=== PATIENT | female | born 1995 | race Caucasian/White ===

== ENCOUNTER 2019-08-28 21:43 | Inpatient (IN) | payer OTHER ==
[2019-08-28] MEDS ORDERED: SODIUM CHLORIDE 1,000 ML IV STA (21:49)
--- NOTE | 2019-08-28 21:49 | PDOC ---
Rapid Medical Evaluation Time Seen by Provider: 08/28/19 21:47 Medical Evaluation: Allergies Allergy/AdvReac Type Severity Reaction Status Date / Time No Known Allergies Allergy Verified 12/22/14 20:29 08/28/19 21:47 CC: left sided abdominal pain PE: No focal findings. Orders: urine, labs Patient will proceed to ER for continued evaluation. Discharge Disposition - Diagnosis Abdominal pain - Referrals - Patient Instructions - Post Discharge Activity
--- NOTE | 2019-08-28 21:55 | PDOC ---
History of Present Illness - General Chief Complaint: Pain Stated Complaint: STOMACH PAIN Time Seen by Provider: 08/28/19 21:47 - History of Present Illness Initial Comments: 08/28/19 21:56 HPI 24 year old with a history of DM (noncompliant) who presents with 4 days of intermittent LLQ cramping abdominal pain that comes on intermittently sometimes preceded by eating and sometimes associated with nausea. She states the episodes last for 2 mins and self resolve. She admits to watery stools for the past several days as well. She denies fever or blood in the stool. Denies chest pain or shortness of breath. Denies any other symptoms. LNMP December 2018. Patient normally has regular menses. She is sexually active but does not use contraception or prophylaxis ROS GENERAL/CONSTITUTIONAL: No fever or chills. No weakness. CARDIOVASCULAR: No chest pain or shortness of breath RESPIRATORY: No cough, wheezing, or hemoptysis. GASTROINTESTINAL: No nausea, vomiting, + diarrhea No constipation. GENITOURINARY: No dysuria, frequency, or change in urination. MUSCULOSKELETAL: No joint or muscle swelling or pain. No neck or back pain. SKIN: No rash NEUROLOGIC: No headache, vertigo, loss of consciousness, or change in strength/ sensation. PE GENERAL: Awake, alert, and fully oriented, in no acute distress, very thin HEAD: No signs of trauma, normocephalic, atraumatic EYES: EOMI, sclera anicteric, conjunctiva clear ENT: oropharynx clear without exudates. Moist mucosa NECK: Normal ROM, supple LUNGS: No distress, speaks full sentences, clear to auscultation bilaterally HEART: Regular rate and rhythm, normal S1 and S2, no murmurs, rubs or gallops, peripheral pulses normal and equal bilaterally. ABDOMEN: Soft, nontender, normoactive bowel sounds. No guarding, no rebound. No masses EXTREMITIES : Normal inspection, Normal range of motion, no edema. No clubbing or cyanosis. NEUROLOGICAL: Cranial nerves II through XII grossly intact. Normal speech, normal gait, no focal sensorimotor deficits PELVIC: closed os, physiologic fluid, no CMT, no adnexal massess paplated MDM DDX including but not limited to: Crohns vs UC IBS r/o ectopic preg ED Course: fingerstick glucose is 501 labs sigfni for glucose at 600s 2 liters ns started patient does not exhibit signs of DKA on labwork no anion gap patient is an uncontrolled diabetic patient very thin appearing Will require close monitoring and started on diabetic regimen plan for admission Princess Zelaya PGY2 Emergency Medicine Past History - Past Medical History Allergies/Adverse Reactions: Allergies Allergy/AdvReac Type Severity Reaction Status Date / Time No Known Allergies Allergy Verified 12/22/14 20:29 Home Medications: Ambulatory Orders Insulin (Levemir) [Levemir Vial] 10 units SQ HS #300 units 08/30/19 Insulin Sliding Scale [Novolog Vial Sliding Scale -] 1 vial SQ ACHS #1 bottle Multivitamins [Multivit ([facility] Formulary)] 1 tab PO DAILY tab 08/30/19 Thiamine HCl [Vitamin B1 -] 100 mg PO DAILY tablet 08/30/19 Lancets/Blood Glucose Strips [Fora [id number] Strp-Lnct] 1 each MC ASDIR # 1 combo..pkg 08/31/19 Miscellaneous Medical Supply [Glucometer Device] 1 each .ROUTE ASDIR #1 kit 05/12 Miscellaneous Medical Supply [Glucometer Test Strips #100] 1 each .ROUTE ASDIR # 1 box 08/31/19 COPD: No Diabetes: Yes - Immunization History Immunization Up to Date: Yes - Psycho Social/Smoking Cessation Hx Smoking History: Never smoked Have you smoked in the past 12 months: No Information on smoking cessation initiated: No Hx Alcohol Use: No Drug/Substance Use Hx: No Substance Use Type: None *Physical Exam - Vital Signs Last Vital Signs Temp Pulse Resp BP Pulse Ox 98.5 F 136 H 18 113/75 100 08/28/19 21:49 08/28/19 21:49 08/28/19 21:49 08/28/19 21:49 08/28/19 21:49 ED Treatment Course - LABORATORY CBC & Chemistry Diagram: 08/31/19 07:33 08/31/19 07:33 Discharge - Discharge Information Problems reviewed: Yes Clinical Impression/Diagnosis: Abdominal pain Condition: Improved Disposition: HOME - Follow up/Referral - Patient Discharge Instructions - Post Discharge Activity
--- NOTE | 2019-08-28 22:07 | PDOC ---
Attending Attestation - Resident Resident Name: Princess Zelaya - ED Attending Attestation I have performed the following: I have examined & evaluated the patient, The case was reviewed & discussed with the resident, I agree w/resident's findings & plan - HPI HPI: 08/28/19 23:40 see resident hpi - Physicial Exam PE: 08/28/19 23:40 agree with resident exam - Medical Decision Making 08/28/19 23:40 24-year-old female, noncompliant type I diabetic due to insurance reasons with diarrhea abdominal cramping and extreme weight loss Labs consistent with diabetic hyperglycemia without secondary indications of diabetic ketoacidosis Sugar is significantly elevated Due to patient's appearance, glucose levels and lack of outpatient follow-up she will be admitted to medical service Insulin and IV hydration administered in the emergency department
[2019-08-28 22:25] LABS: BASO % 0.5 % (0-2.0); EOS % 0.2 % (0-4.5); HEMATOCRIT 39.9 % (32.4-45.2); LYMPH % 33.1 % (8-40); MCH 27.5 pg (25.7-33.7); MCHC 32.5 g/dl (32.0-36.0); MEAN CELL VOLUME 84.7 fl (80-96); MEAN PLT VOLUME 9.4 fl (7.5-11.1); MONO % 7.5 % (3.8-10.2); NEUT % 58.7 % (42.8-82.8); PLATELET COUNT 340 K/MM3 (134-434); RBC 4.71 M/mm3 (3.60-5.2); RDW 13.9 % (11.6-15.6)
[2019-08-28 22:28] LABS: VENOUS PC02 52.3 mmHg (38-52); VENOUS PH 7.37 (7.31-7.41)
[2019-08-28 22:29] LABS: VENOUS PO2 < 49 mmHg (28-48)
[2019-08-28 22:32] LABS: PH,URINE 6.5 (5.0-8.0); URINE APPEARANCE CLOUDY; URINE BILIRUBIN NEGATIVE (NEGATIVE); URINE COLOR YELLOW; URINE GLUCOSE (UA) 3+ (NEGATIVE); URINE KETONE TRACE (NEGATIVE); URINE LEUK ESTERASE 1+ (NEGATIVE); URINE NITRITE NEGATIVE (NEGATIVE); URINE PROTEIN NEGATIVE (NEGATIVE); URINE UROBILINOGEN 0.2 mg/dL (0.2-1.0)
[2019-08-28 23:01] LABS: INR 0.92 (0.83-1.09); PROTHROMBIN TIME (PATIENT) 10.9 SEC (9.7-13.0)
[2019-08-28] MEDS ORDERED: INSULIN REGULAR HUMAN 100 UNITS/ML *VIAL IVPUSH ONE (23:13)
[2019-08-28 23:15] LABS: URINE BACTERIA FEW /hpf (NEGATIVE)
[2019-08-28 23:34] LABS: ALBUMIN 3.5 g/dl (3.4-5.0); BILIRUBIN,TOTAL 0.3 mg/dL (0.2-1); BLOOD UREA NITROGEN 8.4 mg/dL (7-18); CALCIUM 8.9 mg/dL (8.5-10.1); CREATININE 0.8 mg/dL (0.55-1.3); MAGNESIUM 2.1 mg/dL (1.8-2.4); PHOSPHOROUS 3.4 mg/dL (2.5-4.9); POTASSIUM 3.9 mmol/L (3.5-5.1); TOT PROT 7.7 g/dl (6.4-8.2)
--- NOTE | 2019-08-29 00:11 | PN ---
Teaching Attending Note Name of Resident: Sabi Way ATTENDING PHYSICIAN STATEMENT I saw and evaluated the patient. I reviewed the resident's note and discussed the case with the resident. I agree with the resident's findings and plan as documented. SUBJECTIVE: 24-year-old woman with history of diabetes mellitus, Came to hospital seeking medical attention because she was having some abdominal pain which is now resolved. Patient has not been taking her insulin for the past few months due to loss of her insurance. She has regained insurance recently. She denied any eating disorders although she notes that she has decreased appetite lately. OBJECTIVE: Last Vital Signs Temp Pulse Resp BP Pulse Ox 98.5 F 136 H 18 113/75 100 08/28/19 21:49 08/28/19 21:49 08/28/19 21:49 08/28/19 21:49 08/28/19 21:49 GENERAL: Cachectic, wasted, not in acute distress HEENT: Normocephalic, atraumatic. PERRLA, EOMI. No conjunctival pallor. Sunken cheeks NECK: Supple. Full ROM. No JVD. Carotid pulses 2+ and symmetric, without bruits. No thyromegaly. No lymphadenopathy. CARDIOVASCULAR: Regular rate and rhythm. No murmurs, rubs, or gallops. Distal pulses are 2+ and symmetric. PULMONARY: No evidence of respiratory distress. Lungs clear to auscultation bilaterally. No wheezing, rales or rhonchi. ABDOMINAL: Soft. Non-tender. Non-distended. No rebound or guarding. No organomegaly. Normoactive bowel sounds. MUSCULOSKELETAL Normal range of motion at all joints. No bony deformities or tenderness. No CVA tenderness. EXTREMITIES: No cyanosis. No clubbing. No edema. No calf tenderness.Prominent bones SKIN: Warm and dry. Normal capillary refill. No rashes. No jaundice. PSYCHIATRIC: Cooperative. Good eye contact. Appropriate mood and affect. Abnormal Lab Results 08/28/19 08/28/19 08/28/19 22:17 22:17 22:17 POC VBG pCO2 POC VBG pO2 VBG HCO3 VBG O2 Sat (Justin) VBG Base Excess Sodium 128 L Chloride 88 L Random Glucose 605 H* AST 4 L ALT 11 L Alkaline Phosphatase 177 H Creatine Kinase 15 L Beta-Hydroxybutyrate < 0.2 L Ur Specific [place] Urine Glucose (UA) Urine Ketones Ur Leukocyte Esterase 08/28/19 08/28/19 22:17 22:20 POC VBG pCO2 52.3 H POC VBG pO2 < 49 H VBG HCO3 29.2 H VBG O2 Sat (Justin) 30.3 L VBG Base Excess 3.3 H Sodium Chloride Random Glucose AST ALT Alkaline Phosphatase Creatine Kinase Beta-Hydroxybutyrate Ur Specific [place] 1.043 H Urine Glucose (UA) 3+ H Urine Ketones Trace H Ur Leukocyte Esterase 1+ H Imaging reviewed ASSESSMENT AND PLAN: 24-year-old woman who with hyper glycemic hyperosmolar state, no evidence of an gap or ketones on blood work.Do not believe she is in DKA at this time. Elevated alk phosshould rule out cholecystitis given history of abdominal pain. Pseudohyponatremia secondary to hyperglycemia. Corrected sodium is 138. Negative urine test. MedSurg Abdominal ultrasound to rule out cholecystitis Chest x-ray IV fluid hydration Blood glucose checks every 4 hours A1c NovoLog tight sliding scale 10 units Levemir nightly Clear liquid diets, advance as tolerated Zofran IV as needed if nausea Recheck electrolytes including mag and phosphorus and supplement as needed community manager foster care worker intervention for medication approval #Cachexiamay be secondary to underlying insulin deficiency. Insulin is noted to be an anabolic hormone and lack of it will result in wasting. Patient otherwise denied any kind of eating disorder her sister agreed. SCDs for DVT prophylaxis
[2019-08-29] MEDS ORDERED: INSULIN SLIDING SCALE (NOVOLOG) 1 VIAL SQ SCH (01:15)
[2019-08-29] MEDS: SODIUM CHLORIDE 1,000 ML IV SCH ×2 (01:22→02:42)
--- NOTE | 2019-08-29 01:34 | HP ---
CHIEF COMPLAINT: LLQ pain PCP: none HISTORY OF PRESENT ILLNESS: Pt is a 24 y/o F w/ pmhx of Type 1 diabetes presenting to ED complaining LLQ abdominal pain onset few days ago but acutely worsened today. Pts pain is sharp , comes and goes, and radiates to RLQ at times. Pt rates pain as 8/10. Pt eats small meals because she experiences early satiety and nausea with larger meals. She also states her pain is worse with eating. Nothing alleviates the pain but it intermittently resolves on its own. She has not taken her insulin or followed up with an machinist instructor or PCP for the past year because of her insurance lapsing. She states prior to this she had taken her insulin regularly and followed up with Drs regularly. Pt also complaining of multiple episodes of watery brown, non-bloody diarrhea for the past few days. In the last few months the pt has noted that she has had polyuria, increased thirst and a 30lb weight loss (she reports her normal weight 130lb). The patient states she is concerned about her lack of appetite and recent weight loss. Pt denies ALVARES, fever, chills, chest pain, SOB, and numbness and tingling in lower extremeties. ER course was notable for: (1) 10u insulin (2) 1L NS bolus Recent Travel: denies PAST MEDICAL HISTORY: Type 1 diabetes (diagnosed 2014) PAST SURGICAL HISTORY: denies Social History: Smoking: denies Alcohol: denies Drugs: denies LNMP: December 2018 Occupation: Car Detailer Residence: pt lives with her sister Insurance: [email or web address] Allergies No Known Allergies Allergy (Verified 12/22/14 20:29) HOME MEDICATIONS: Home Medications Medication Instructions Recorded NK [No Known Home Medication] 12/22/14 REVIEW OF SYSTEMS CONSTITUTIONAL: weight change- 30lb wt loss in 2-3mo Absent: fever, chills, diaphoresis, generalized weakness, malaise, loss of appetite, HEENT: Absent: rhinorrhea, nasal congestion, throat pain, throat swelling, difficulty swallowing, mouth swelling, ear pain, eye pain, visual changes CARDIOVASCULAR: Absent: chest pain, syncope, palpitations, irregular heart rate, lightheadedness , peripheral edema RESPIRATORY: Absent: cough, shortness of breath, dyspnea with exertion, orthopnea, wheezing, stridor, hemoptysis GASTROINTESTINAL: LLQ/ RLQ abdominal pain, nausea, diarrhea, Absent: abdominal distension, vomiting, constipation, melena, hematochezia GENITOURINARY: increased frequency, Absent: dysuria, urgency, hesitancy, hematuria, flank pain, genital pain MUSCULOSKELETAL: back pain Absent: myalgia, arthralgia, joint swelling, neck pain SKIN: Absent: rash, itching, pallor HEMATOLOGIC/IMMUNOLOGIC: Absent: easy bleeding, easy bruising, lymphadenopathy, frequent infections ENDOCRINE: unexplained weight loss, increased thirst Absent: unexplained weight gain, heat intolerance, cold intolerance NEUROLOGIC: Absent: headache, focal weakness or paresthesias, dizziness, unsteady gait, seizure, mental status changes, bladder or bowel incontinence PSYCHIATRIC: Absent: anxiety, depression, suicidal or homicidal ideation, hallucinations. PHYSICAL EXAMINATION Vital Signs - 24 hr 08/28/19 21:49 Temperature 98.5 F Pulse Rate 136 H Respiratory 18 Rate Blood Pressure 113/75 O2 Sat by Pulse 100 Oximetry (%) GENERAL: Awake, alert, and fully oriented, in no acute distress. Extremely thin and frail appearing. HEAD: Normal with no signs of trauma. EYES: Pupils equal, round and reactive to light, extraocular movements intact, sclera anicteric, conjunctiva clear. No lid lag. EARS, NOSE, THROAT: Ears normal, nares patent, oropharynx clear without exudates. Dry mucous membranes, poor dentition with dental plaque and carries on multiple teeth especially molars NECK: Normal range of motion, supple without lymphadenopathy, JVD, or masses. LUNGS: Breath sounds equal, clear to auscultation bilaterally. No wheezes, and no crackles. No accessory muscle use. HEART: Regular rate and rhythm, normal S1 and S2 without murmur, rub or gallop. ABDOMEN: Soft, nontender, not distended, hypoactive bowel sounds, no guarding, no rebound, no masses. No hepatomegaly or splenomegaly. MUSCULOSKELETAL: Normal range of motion at all joints. No bony deformities or tenderness. No CVA tenderness. UPPER EXTREMITIES: 2+ pulses, warm, well-perfused. No cyanosis. No clubbing. No peripheral edema. LOWER EXTREMITIES: 2+ pulses, warm, well-perfused. No calf tenderness. No peripheral edema. NEUROLOGICAL: Cranial nerves II-XII intact. Normal speech. Normal gait. PSYCHIATRIC: Cooperative. Good eye contact. Appropriate mood and affect. SKIN: Warm, dry, normal turgor, no rashes or lesions noted, normal capillary refill. Laboratory Results - last 24 hr 08/28/19 08/28/19 08/28/19 22:17 22:17 22:17 WBC 6.0 RBC 4.71 Hgb 13.0 Hct 39.9 MCV 84.7 MCH 27.5 D MCHC 32.5 RDW 13.9 D Plt Count 340 D MPV 9.4 Absolute Neuts (auto) 3.6 Neutrophils % 58.7 Lymphocytes % 33.1 Monocytes % 7.5 Eosinophils % 0.2 Basophils % 0.5 Nucleated RBC % 0 PT with INR INR PTT (Actin FS) VBG pH POC VBG pCO2 POC VBG pO2 VBG HCO3 VBG O2 Sat (Justin) VBG Base Excess Sodium Potassium Chloride Carbon Dioxide Anion Gap BUN Creatinine Est GFR (CKD-EPI)AfAm Est GFR (CKD-EPI)NonAf POC Glucometer Random Glucose Calcium Phosphorus Magnesium Total Bilirubin AST ALT Alkaline Phosphatase Creatine Kinase 15 L Troponin I < 0.02 Total Protein Albumin Lipase Beta-Hydroxybutyrate < 0.2 L TSH Urine Color Urine Appearance Urine pH Ur Specific [place] Urine Protein Urine Glucose (UA) Urine Ketones Urine Blood Urine Nitrite Urine Bilirubin Urine Urobilinogen Ur Leukocyte Esterase Urine WBC (Auto) Urine Bacteria (Auto) Urine HCG, Qual Stool Occult Blood 08/28/19 08/28/19 08/28/19 22:17 22:17 22:17 WBC RBC Hgb Hct MCV MCH MCHC RDW Plt Count MPV Absolute Neuts (auto) Neutrophils % Lymphocytes % Monocytes % Eosinophils % Basophils % Nucleated RBC % PT with INR INR PTT (Actin FS) VBG pH 7.37 POC VBG pCO2 52.3 H POC VBG pO2 < 49 H VBG HCO3 29.2 H VBG O2 Sat (Justin) 30.3 L VBG Base Excess 3.3 H Sodium 128 L Potassium 3.9 Chloride 88 L Carbon Dioxide 31 Anion Gap 9 BUN 8.4 Creatinine 0.8 Est GFR (CKD-EPI)AfAm 121.29 Est GFR (CKD-EPI)NonAf 104.65 POC Glucometer Random Glucose 605 H* Calcium 8.9 Phosphorus 3.4 Magnesium 2.1 Total Bilirubin 0.3 AST 4 L ALT 11 L Alkaline Phosphatase 177 H Creatine Kinase Troponin I Total Protein 7.7 Albumin 3.5 Lipase 147 Cancelled Beta-Hydroxybutyrate TSH 2.68 Urine Color Urine Appearance Urine pH Ur Specific [place] Urine Protein Urine Glucose (UA) Urine Ketones Urine Blood Urine Nitrite Urine Bilirubin Urine Urobilinogen Ur Leukocyte Esterase Urine WBC (Auto) Urine Bacteria (Auto) Urine HCG, Qual Stool Occult Blood 08/28/19 08/28/19 08/28/19 22:20 22:20 22:20 WBC RBC Hgb Hct MCV MCH MCHC RDW Plt Count MPV Absolute Neuts (auto) Neutrophils % Lymphocytes % Monocytes % Eosinophils % Basophils % Nucleated RBC % PT with INR INR PTT (Actin FS) 33.0 VBG pH POC VBG pCO2 POC VBG pO2 VBG HCO3 VBG O2 Sat (Justin) VBG Base Excess Sodium Potassium Chloride Carbon Dioxide Anion Gap BUN Creatinine Est GFR (CKD-EPI)AfAm Est GFR (CKD-EPI)NonAf POC Glucometer Random Glucose Calcium Phosphorus Magnesium Total Bilirubin AST ALT Alkaline Phosphatase Creatine Kinase Troponin I Total Protein Albumin Lipase Beta-Hydroxybutyrate TSH Urine Color Yellow Urine Appearance Cloudy Urine pH 6.5 D Ur Specific [place] 1.043 H Urine Protein Negative Urine Glucose (UA) 3+ H Urine Ketones Trace H Urine Blood Negative Urine Nitrite Negative Urine Bilirubin Negative Urine Urobilinogen 0.2 Ur Leukocyte Esterase 1+ H Urine WBC (Auto) 3-5 Urine Bacteria (Auto) Few Urine HCG, Qual Negative Stool Occult Blood 08/28/19 08/28/19 08/28/19 22:20 22:30 23:09 WBC RBC Hgb Hct MCV MCH MCHC RDW Plt Count MPV Absolute Neuts (auto) Neutrophils % Lymphocytes % Monocytes % Eosinophils % Basophils % Nucleated RBC % PT with INR 10.90 INR 0.92 PTT (Actin FS) VBG pH POC VBG pCO2 POC VBG pO2 VBG HCO3 VBG O2 Sat (Justin) VBG Base Excess Sodium Potassium Chloride Carbon Dioxide Anion Gap BUN Creatinine Est GFR (CKD-EPI)AfAm Est GFR (CKD-EPI)NonAf POC Glucometer 501 Random Glucose Calcium Phosphorus Magnesium Total Bilirubin AST ALT Alkaline Phosphatase Creatine Kinase Troponin I Total Protein Albumin Lipase Beta-Hydroxybutyrate TSH Urine Color Urine Appearance Urine pH Ur Specific [place] Urine Protein Urine Glucose (UA) Urine Ketones Urine Blood Urine Nitrite Urine Bilirubin Urine Urobilinogen Ur Leukocyte Esterase Urine WBC (Auto) Urine Bacteria (Auto) Urine HCG, Qual Stool Occult Blood Negative 08/29/19 00:43 WBC RBC Hgb Hct MCV MCH MCHC RDW Plt Count MPV Absolute Neuts (auto) Neutrophils % Lymphocytes % Monocytes % Eosinophils % Basophils % Nucleated RBC % PT with INR INR PTT (Actin FS) VBG pH POC VBG pCO2 POC VBG pO2 VBG HCO3 VBG O2 Sat (Justin) VBG Base Excess Sodium Potassium Chloride Carbon Dioxide Anion Gap BUN Creatinine Est GFR (CKD-EPI)AfAm Est GFR (CKD-EPI)NonAf POC Glucometer 380 Random Glucose Calcium Phosphorus Magnesium Total Bilirubin AST ALT Alkaline Phosphatase Creatine Kinase Troponin I Total Protein Albumin Lipase Beta-Hydroxybutyrate TSH Urine Color Urine Appearance Urine pH Ur Specific [place] Urine Protein Urine Glucose (UA) Urine Ketones Urine Blood Urine Nitrite Urine Bilirubin Urine Urobilinogen Ur Leukocyte Esterase Urine WBC (Auto) Urine Bacteria (Auto) Urine HCG, Qual Stool Occult Blood ASSESSMENT/PLAN: Pt is a 24 y/o F w/ pmhx of Type 1 diabetes presenting to ED complaining LLQ abdominal pain onset few days ago but acutely worsened today. # Abdominal pain- patient found to be in hyperglycemic, hyperosmolar state which may be causin her polyuria, polydipsia, weight loss, and abdominal pain. She is a T1 diabetic, not taking any insulin for the past year 2/2 insurance lapse. Glucose 605 without any evidence of anion gap or ketones on blood work/ UA, given the lab findings it is unlikely that she is in DKA at this time. Must also r/o given her age and the fact that she is not on any contraception however this is not likely as the patient states she has not been sexually active in years and her lack of period may be explained by her BMI of 14. - CXR - IV NS@ 125cc/h - BGM q4h - ISS - 10u Levemir nightly - f/u A1C - clear liquid diet, advance as tolerated - IV zofran PRN for nausea - f/u CMP including mag/ phos, replete PRN - diabetic education - social work for medication approval - test is negative # Elevated Alk phos- pt complaining of many months of nonspecific abdominal pain that is worse with eating, given the elevated alk phos should r/o cholecystitis. - Abd u/s # Pseudo Hyponatremia- 2/2 hyperglycemia, corrected Na is 136 - IV NS@ 125cc/h # Cachexiamay be secondary to underlying insulin deficiency. Insulin is noted to be an anabolic hormone and lack of it will result in wasting. Patient otherwise denied any kind of eating disorder her sister agreed. #FEN - IV NS@ 125cc/h - monitor lytes, replete PRN - clear liquid diet, advance as tolerated #PPx SCDs for DVT prophylaxis #Dispo- admit to [facility] Visit type - Emergency Visit Emergency Visit: Yes ED Registration Date: 08/28/19 Care time: The patient presented to the Emergency Department on the above date and was hospitalized for further evaluation of their emergent condition. - New Patient This patient is new to me today: Yes Date on this admission: 08/29/19 - Critical Care Critical Care patient: No ATTENDING PHYSICIAN STATEMENT I saw and evaluated the patient. I reviewed the resident's note and discussed the case with the resident. I agree with the resident's findings and plan as documented. SUBJECTIVE: OBJECTIVE: ASSESSMENT AND PLAN:
[2019-08-29] MEDS: INSULIN SLIDING SCALE (NOVOLOG) 1 VIAL SQ SCH ×6 (02:54→22:31)
[2019-08-29 03:32] VITALS: BMI 15.0
[2019-08-29 07:39] LABS: BASO % 0.4 % (0-2.0); EOS % 0.8 % (0-4.5); HEMATOCRIT 31.4 % (32.4-45.2); HEMOGLOBIN 10.3 GM/dL (10.7-15.3); LYMPH % 41.6 % (8-40); MCH 27.3 pg (25.7-33.7); MCHC 32.9 g/dl (32.0-36.0); MEAN CELL VOLUME 82.9 fl (80-96); MEAN PLT VOLUME 9.2 fl (7.5-11.1); NEUT % 49.2 % (42.8-82.8); PLATELET COUNT 266 K/MM3 (134-434); RBC 3.79 M/mm3 (3.60-5.2); RDW 13.4 % (11.6-15.6); WHITE BLOOD COUNT 6.6 K/mm3 (4.0-10.0)
[2019-08-29 08:51] LABS: ALBUMIN 2.5 g/dl (3.4-5.0); BILIRUBIN,TOTAL 0.2 mg/dL (0.2-1); CREATININE 0.4 mg/dL (0.55-1.3); MAGNESIUM 1.9 mg/dL (1.8-2.4); PHOSPHOROUS 3.4 mg/dL (2.5-4.9); POTASSIUM 3.3 mmol/L (3.5-5.1); PREALBUMIN 14.2 mg/dl (20-40); TOT PROT 5.4 g/dl (6.4-8.2)
--- NOTE | 2019-08-29 09:05 | PN ---
Progress Note, Physician Chief Complaint: Very lethargic but arousable, stated she did not sleep much last night History of Present Illness: 24 y/o F w/ pmhx of Type 1 diabetes presenting to ED complaining LLQ abdominal pain onset x few days with worsening prior to ED. Pts pain is sharp, comes and goes, and radiates to RLQ at times. Pt rates pain as 8/10. Pt eats small meals because she experiences early satiety and nausea with larger meals. She also states her pain is worse with eating. Nothing alleviates the pain but it intermittently resolves on its own. No insulin for past year or f/u with endocrinology d/t insurance issues. Pt also complaining of multiple episodes of watery brown , non-bloody diarrhea for the past few days. In the last few months the pt has noted that she has had polyuria, increased thirst and a 30lb weight loss (she reports her normal weight 130lb). The patient states she is concerned about her lack of appetite and recent weight loss. Pt denies ALVARES, fever, chills, chest pain , SOB, and numbness and tingling in lower extremeties. - Current Medication List Current Medications: Active Medications Sodium Chloride (Normal Saline -) 1,000 mls @ 125 mls/hr IV [facility] Last Admin: 08/29/19 02:42 Dose: 125 mls/hr Insulin Aspart (Novolog Vial Sliding Scale -) 1 vial SQ [facility]; Protocol Last Admin: 08/29/19 06:20 Dose: Not Given - Objective Vital Signs: Vital Signs Temperature 98.7 F 08/29/19 06:06 Pulse Rate 90 08/29/19 06:06 Respiratory Rate 18 08/29/19 06:06 Blood Pressure 98/63 08/29/19 06:06 O2 Sat by Pulse Oximetry (%) 99 08/29/19 02:15 Constitutional: Yes: Well Nourished, No Distress, Calm Eyes: Yes: WNL, Conjunctiva Clear HENT: Yes: WNL, Atraumatic, Normocephalic, Other (poor dentation) Neck: Yes: WNL, Supple, Trachea Midline Cardiovascular: Yes: WNL, Regular Rate and Rhythm, Tachycardia (HR 90s) Respiratory: Yes: WNL, Regular, CTA Bilaterally Gastrointestinal: Yes: WNL, Normal Bowel Sounds ...Rectal Exam: Yes: Deferred Genitourinary: Yes: WNL Breast(s): Yes: WNL Musculoskeletal: Yes: WNL Extremities: Yes: WNL Edema: No Peripheral Pulses WNL: Yes Peripheral Pulses: Left Radial: 2+, Right Radial: 2+, Left Doralis Pedis: 2+, Right Dorsalis Pedis: 2+, Left Femoral: 2+, Right Femoral: 2+ Integumentary: Yes: WNL Neurological: Yes: WNL, Alert, Oriented ...Motor Strength: WNL Psychiatric: Yes: WNL, Alert, Oriented Labs: CBC, BMP 08/29/19 06:40 08/29/19 06:40 INR, PTT INR 0.92 (0.83-1.09) 08/28/19 22:20 - ....Imaging Chest X-ray: Report Reviewed, Image Reviewed (No acute pathology) Ultrasound: Report Reviewed (US contracted GB with no evidence of acute cholecyctitis, echogenic right kidney) Problem List - Problems (1) Prophylactic measure Assessment/Plan: FEN on clears, advance diet as tolerated monitor electrolytes c/w IVF until tolerating full PO DVT ambulatory Dispo maintain as in [facility] full code discharge planning Code(s): Z29.9 - ENCOUNTER FOR PROPHYLACTIC MEASURES, UNSPECIFIED (2) Abdominal pain Assessment/Plan: resolving advance diet as tolerated zofran/reglan prn c/w IVF Code(s): R10.9 - UNSPECIFIED ABDOMINAL PAIN (3) Hyperglycemia Assessment/Plan: hyperglycemic, hyperosmolar state BGM q4h with sliding scale 10u Levemir q HS A1C 15.6 clear liquid diet, advance as tolerated diabetic education endocrinology consultation requested Code(s): R73.9 - HYPERGLYCEMIA, UNSPECIFIED (4) Hypokalemia Assessment/Plan: replete potassium monitor electrolytes Code(s): E87.6 - HYPOKALEMIA Visit type - Emergency Visit Emergency Visit: Yes ED Registration Date: 08/28/19 Care time: The patient presented to the Emergency Department on the above date and was hospitalized for further evaluation of their emergent condition. - New Patient This patient is new to me today: Yes Date on this admission: 08/29/19 - Critical Care Critical Care patient: No - Discharge [facility] No
[2019-08-29] MEDS ORDERED: POTASSIUM CHLORIDE TABS 20 MEQ TABLET.ER (FP) PO ONE (09:12)
--- NOTE | 2019-08-29 09:19 | EKG ---
Test Reason : Blood Pressure : / mmHG Vent. Rate : 114 BPM Atrial Rate : 114 BPM P-R Int : 132 ms QRS Dur : 060 ms QT Int : 326 ms P-R-T Axes : 059 090 068 degrees QTc Int : 449 ms SINUS TACHYCARDIA RIGHTWARD AXIS BORDERLINE ECG NO PREVIOUS ECGS AVAILABLE Confirmed by MD Moy, Shaquille ([id number]) on 08/29/2019 9:19:41 AM Referred By: Confirmed By:Shaquille Winter MD
--- NOTE | 2019-08-29 11:26 | EKG ---
Test Reason : Blood Pressure : / mmHG Vent. Rate : 109 BPM Atrial Rate : 109 BPM P-R Int : 126 ms QRS Dur : 058 ms QT Int : 348 ms P-R-T Axes : 060 093 073 degrees QTc Int : 468 ms POOR DATA QUALITY, INTERPRETATION MAY BE ADVERSELY AFFECTED SINUS TACHYCARDIA POSSIBLE LEFT ATRIAL ENLARGEMENT RIGHTWARD AXIS NONSPECIFIC ST ABNORMALITY ABNORMAL ECG NO PREVIOUS ECGS AVAILABLE Confirmed by Britton Decker MD ([id number]) on 08/29/2019 11:26:13 AM Referred By: Confirmed By:Britton Decker MD
[2019-08-29] MEDS ORDERED: PT OWN MED DRAWER 7, Y5N ONE (18:33)
[2019-08-29] MEDS: INSULIN (LEVEMIR) 100 UNITS/ML UNITS SQ SCH (22:32)
[2019-08-30] MEDS: SODIUM CHLORIDE 1,000 ML IV SCH ×2 (01:31→13:48)
[2019-08-30] MEDS: INSULIN SLIDING SCALE (NOVOLOG) 1 VIAL SQ SCH ×6 (01:38→21:37)
--- NOTE | 2019-08-30 08:01 | PN ---
Progress Note, Physician Chief Complaint: Bloow sugars better controlled overnight. Tolerating PO diet now. Feels much better History of Present Illness: 24 y/o F w/ pmhx of Type 1 diabetes presenting to ED complaining LLQ abdominal pain onset x few days with worsening prior to ED. Pts pain is sharp, comes and goes, and radiates to RLQ at times. Pt rates pain as 8/10. Pt eats small meals because she experiences early satiety and nausea with larger meals. She also states her pain is worse with eating. Nothing alleviates the pain but it intermittently resolves on its own. No insulin for past year or f/u with endocrinology d/t insurance issues. Pt also complaining of multiple episodes of watery brown , non-bloody diarrhea for the past few days. In the last few months the pt has noted that she has had polyuria, increased thirst and a 30lb weight loss (she reports her normal weight 130lb). The patient states she is concerned about her lack of appetite and recent weight loss. Pt denies ALVARES, fever, chills, chest pain , SOB, and numbness and tingling in lower extremeties. - Current Medication List Current Medications: Active Medications Sodium Chloride (Normal Saline -) 1,000 mls @ 125 mls/hr IV [facility] Last Admin: 08/30/19 01:31 Dose: 125 mls/hr Insulin Aspart (Novolog Vial Sliding Scale -) 1 vial SQ Q4H [facility]; Protocol Last Admin: 08/30/19 05:32 Dose: Not Given Insulin Detemir (Levemir Vial) 10 units SQ HS [facility] Last Admin: 08/29/19 22:32 Dose: 10 units - Objective Vital Signs: Vital Signs Temperature 98.4 F 08/30/19 06:06 Pulse Rate 78 08/30/19 06:06 Respiratory Rate 18 08/30/19 06:06 Blood Pressure 103/62 08/30/19 06:06 O2 Sat by Pulse Oximetry (%) 99 08/29/19 09:00 Additional Findings/Remarks: Constitutional: Yes: Well Nourished, No Distress, Calm Eyes: Yes: WNL, Conjunctiva Clear HENT: Yes: WNL, Atraumatic, Normocephalic, Other (poor dentation) Neck: Yes: WNL, Supple, Trachea Midline Cardiovascular: Yes: WNL, Regular Rate and Rhythm, Tachycardia (HR 90s) Respiratory: Yes: WNL, Regular, CTA Bilaterally Gastrointestinal: Yes: WNL, Normal Bowel Sounds ...Rectal Exam: Yes: Deferred Genitourinary: Yes: WNL Breast(s): Yes: WNL Musculoskeletal: Yes: WNL Extremities: Yes: WNL Edema: No Peripheral Pulses WNL: Yes Peripheral Pulses: Left Radial: 2+, Right Radial: 2+, Left Doralis Pedis: 2+, Right Dorsalis Pedis: 2+, Left Femoral: 2+, Right Femoral: 2+ Integumentary: Yes: WNL Neurological: Yes: WNL, Alert, Oriented ...Motor Strength: WNL Psychiatric: Yes: WNL, Alert, Oriented Labs: CBC, BMP 08/29/19 06:40 08/29/19 06:40 INR, PTT INR 0.92 (0.83-1.09) 08/28/19 22:20 Problem List - Problems (1) Prophylactic measure Assessment/Plan: FEN tolerting diabetic diet with snacks and additional supplements/magic cup monitor electrolytes c/w IVF until tolerating full PO DVT ambulatory Dispo maintain as in patient full code discharge planning Code(s): Z29.9 - ENCOUNTER FOR PROPHYLACTIC MEASURES, UNSPECIFIED (2) Abdominal pain Assessment/Plan: resolved advance diet as tolerating PO d/c IVF Code(s): R10.9 - UNSPECIFIED ABDOMINAL PAIN (3) Hyperglycemia Assessment/Plan: hyperglycemic, hyperosmolar state on admission BGM better controlled overnight c/w BGM q4h with sliding scale 10u Levemir q HS A1C 15.6 diabetic diet diabetic education endocrinology consultation pending Code(s): R73.9 - HYPERGLYCEMIA, UNSPECIFIED (4) Hypokalemia Assessment/Plan: replete potassium monitor electrolytes Code(s): E87.6 - HYPOKALEMIA Visit type - Emergency Visit Emergency Visit: Yes ED Registration Date: 08/28/19 Care time: The patient presented to the Emergency Department on the above date and was hospitalized for further evaluation of their emergent condition. - New Patient This patient is new to me today: No - Critical Care Critical Care patient: No - Discharge Referral Referred to [facility] No
[2019-08-30] MEDS ORDERED: INSULIN (NOVOLOG) ASPART 100 UNITS/ML 10ML VIAL ONE (10:29)
[2019-08-30] MEDS: THIAMINE HCL 100 MG TABLET (FP) PO SCH (10:35)
[2019-08-30] MEDS: MULTIVITAMINS (DAILY MVI) TABLET (FP) PO SCH (10:35)
[2019-08-30 17:39] LABS: BASO % 0.3 % (0-2.0); EOS % 0.2 % (0-4.5); HEMATOCRIT 35.7 % (32.4-45.2); HEMOGLOBIN 11.6 GM/dL (10.7-15.3); LYMPH % 27.6 % (8-40); MCH 27.3 pg (25.7-33.7); MCHC 32.5 g/dl (32.0-36.0); MEAN CELL VOLUME 83.8 fl (80-96); MEAN PLT VOLUME 9.8 fl (7.5-11.1); MONO % 6.1 % (3.8-10.2); NEUT % 65.8 % (42.8-82.8); PLATELET COUNT 283 K/MM3 (134-434); RBC 4.26 M/mm3 (3.60-5.2); RDW 13.6 % (11.6-15.6); WHITE BLOOD COUNT 7.1 K/mm3 (4.0-10.0)
[2019-08-30 18:16] LABS: ALBUMIN 2.8 g/dl (3.4-5.0); BILIRUBIN,TOTAL 0.2 mg/dL (0.2-1); BLOOD UREA NITROGEN 5.9 mg/dL (7-18); CALCIUM 8.6 mg/dL (8.5-10.1); CREATININE 0.6 mg/dL (0.55-1.3); POTASSIUM 4.2 mmol/L (3.5-5.1); TOT PROT 5.8 g/dl (6.4-8.2)
[2019-08-30] MEDS: INSULIN (LEVEMIR) 100 UNITS/ML UNITS SQ SCH (21:37)
[2019-08-31] MEDS: INSULIN SLIDING SCALE (NOVOLOG) 1 VIAL SQ SCH ×3 (01:43→11:11)
[2019-08-31 07:59] LABS: BASO % 0.4 % (0-2.0); EOS % 0.4 % (0-4.5); HEMATOCRIT 33.3 % (32.4-45.2); HEMOGLOBIN 10.9 GM/dL (10.7-15.3); LYMPH % 38.8 % (8-40); MCH 27.5 pg (25.7-33.7); MCHC 32.7 g/dl (32.0-36.0); MEAN PLT VOLUME 9.4 fl (7.5-11.1); MONO % 6.6 % (3.8-10.2); NEUT % 53.8 % (42.8-82.8); PLATELET COUNT 275 K/MM3 (134-434); RBC 3.97 M/mm3 (3.60-5.2); RDW 13.9 % (11.6-15.6); WHITE BLOOD COUNT 7.1 K/mm3 (4.0-10.0)
--- NOTE | 2019-08-31 08:28 | DS ---
Physical Exam: SUBJECTIVE: Patient seen and examined 24 y/o F w/ pmhx of Type 1 diabetes presenting to ED complaining LLQ abdominal pain onset x few days with worsening prior to ED. In the last few months the pt has noted that she has had polyuria, increased thirst and a 30lb weight loss ( she reports her normal weight 130lb). She was admitted and treated for hyperosmoolar hyperglycemia Vital Signs Period Temp Pulse Resp BP Sys/[place] Pulse Ox Last 24 Hr 97.1 F-98.9 F 80-111 16-18 99-115/55-68 99-99 PHYSICAL EXAM Constitutional: Yes: Well Nourished, No Distress, Calm Eyes: Yes: WNL, Conjunctiva Clear HENT: Yes: WNL, Atraumatic, Normocephalic, Other (poor dentation) Neck: Yes: WNL, Supple, Trachea Midline Cardiovascular: Yes: WNL, Regular Rate and Rhythm, Tachycardia (HR 90s) Respiratory: Yes: WNL, Regular, CTA Bilaterally Gastrointestinal: Yes: WNL, Normal Bowel Sounds ...Rectal Exam: Yes: Deferred Genitourinary: Yes: WNL Breast(s): Yes: WNL Musculoskeletal: Yes: WNL Extremities: Yes: WNL Edema: No Peripheral Pulses WNL: Yes Peripheral Pulses: Left Radial: 2+, Right Radial: 2+, Left Doralis Pedis: 2+, Right Dorsalis Pedis: 2+, Left Femoral: 2+, Right Femoral: 2+ Integumentary: Yes: WNL Neurological: Yes: WNL, Alert, Oriented ...Motor Strength: WNL Psychiatric: Yes: WNL, Alert, Oriented LABS Laboratory Results - last 24 hr 08/30/19 08/30/19 08/30/19 10:25 13:39 16:35 WBC RBC Hgb Hct MCV MCH MCHC RDW Plt Count MPV Absolute Neuts (auto) Neutrophils % Lymphocytes % Monocytes % Eosinophils % Basophils % Nucleated RBC % Sodium Potassium Chloride Carbon Dioxide Anion Gap BUN Creatinine Est GFR (CKD-EPI)AfAm Est GFR (CKD-EPI)NonAf POC Glucometer 233 297 289 Random Glucose Calcium Magnesium Total Bilirubin AST ALT Alkaline Phosphatase Total Protein Albumin 08/30/19 08/30/19 08/30/19 17:30 17:30 21:33 WBC 7.1 RBC 4.26 Hgb 11.6 Hct 35.7 MCV 83.8 MCH 27.3 MCHC 32.5 RDW 13.6 Plt Count 283 MPV 9.8 Absolute Neuts (auto) 4.7 Neutrophils % 65.8 D Lymphocytes % 27.6 D Monocytes % 6.1 Eosinophils % 0.2 Basophils % 0.3 Nucleated RBC % 0 Sodium 137 Potassium 4.2 Chloride 103 Carbon Dioxide 30 Anion Gap 4 L BUN 5.9 L Creatinine 0.6 Est GFR (CKD-EPI)AfAm 149.95 Est GFR (CKD-EPI)NonAf 129.38 POC Glucometer 337 Random Glucose 305 H Calcium 8.6 Magnesium 2.0 Total Bilirubin 0.2 AST 6 L ALT 9 L Alkaline Phosphatase 118 H Total Protein 5.8 L Albumin 2.8 L 08/31/19 08/31/19 08/31/19 01:42 05:53 07:33 WBC 7.1 RBC 3.97 Hgb 10.9 Hct 33.3 MCV 84.0 MCH 27.5 MCHC 32.7 RDW 13.9 Plt Count 275 MPV 9.4 Absolute Neuts (auto) 3.8 Neutrophils % 53.8 Lymphocytes % 38.8 D Monocytes % 6.6 Eosinophils % 0.4 D Basophils % 0.4 Nucleated RBC % 0 Sodium Potassium Chloride Carbon Dioxide Anion Gap BUN Creatinine Est GFR (CKD-EPI)AfAm Est GFR (CKD-EPI)NonAf POC Glucometer 189 123 Random Glucose Calcium Magnesium Total Bilirubin AST ALT Alkaline Phosphatase Total Protein Albumin HOSPITAL COURSE: Date of Admission:08/28/19 Date of Discharge: 08/31/19 Problem List - Problems (1) Prophylactic measure Assessment/Plan: FEN c/w diabetic diet with snacks at home Dispo medcially cleared for discharge without without services (2) Hyperglycemia Assessment/Plan: hyperglycemic, hyperosmolar state on admission BGM controlled c/w BGM AC/HS with sliding scale c/w 10u Levemir q HS A1C 15.6 diabetic diet diabetic education endocrinology to follow up after discharge Medically stable for discharge homr Minutes to complete discharge: 45 Discharge Summary Problems reviewed: Yes Reason For Visit: DIABETES MELLITUS, HYPERGLYCEMIA, VOLUME DEPLETION Current Active Problems Abdominal pain (Acute) Hypokalemia (Acute) Prophylactic measure (Acute) Health Concerns: HOSPITAL COURSE: Date of Admission:08/28/19 Date of Discharge: 08/31/19 Problem List - Problems (1) Prophylactic measure Assessment/Plan: FEN c/w diabetic diet with snacks at home Dispo medcially cleared for discharge without without services (2) Hyperglycemia Assessment/Plan: hyperglycemic, hyperosmolar state on admission BGM controlled c/w BGM AC/HS with sliding scale c/w 10u Levemir q HS A1C 15.6 diabetic diet diabetic education endocrinology to follow up after discharge Medically stable for discharge homr Condition: Improved - Instructions Diet, Activity, Other Instructions: Follow with your home endrinologist or you can see Dr Rhodes (number in discharge papers). Make an appointment with you go home for 1-2 weeks. You will be taking Levemir 10 u every night before bedtime Check you blood sugar before meals and at bedtime Follows the Novolog sliding scale: <60 drink some juice and repeat in 1/2 hour >150 no insulin 151-200 4 units 201-250 6 units 252-300 8 units 301-350 10 units 351-400 12 units >401 14 units and call your provider Referrals: Myesha Rhodes MD [Staff Physician] - Disposition: HOME - Home Medications Comprehensive Discharge Medication List: Ambulatory Orders Insulin (Levemir) [Levemir Vial] 10 units SQ HS #300 units 08/30/19 Insulin Sliding Scale [Novolog Vial Sliding Scale -] 1 vial SQ ACHS #1 bottle Multivitamins [Multivit ([facility] Formulary)] 1 tab PO DAILY tab 08/30/19 Thiamine HCl [Vitamin B1 -] 100 mg PO DAILY tablet 08/30/19 Prescription Drug Monitoring Program (I-STOP) results: I-STOP not reviewed Problem List - Problems (1) Prophylactic measure Code(s): Z29.9 - ENCOUNTER FOR PROPHYLACTIC MEASURES, UNSPECIFIED (2) Abdominal pain Code(s): R10.9 - UNSPECIFIED ABDOMINAL PAIN (3) Hyperglycemia Code(s): R73.9 - HYPERGLYCEMIA, UNSPECIFIED This patient is new to me today: No Emergency Visit: Yes ED Registration Date: 08/28/19 Care time: The patient presented to the Emergency Department on the above date and was hospitalized for further evaluation of their emergent condition. Critical Care patient: No - Discharge Referral Referred to [facility] No
[2019-08-31 08:31] LABS: ALBUMIN 2.6 g/dl (3.4-5.0); BILIRUBIN,TOTAL 0.2 mg/dL (0.2-1); CALCIUM 9.1 mg/dL (8.5-10.1); CREATININE 0.4 mg/dL (0.55-1.3); MAGNESIUM 2.1 mg/dL (1.8-2.4); POTASSIUM 3.6 mmol/L (3.5-5.1); TOT PROT 5.6 g/dl (6.4-8.2)
[2019-08-31] MEDS ORDERED: INSULIN (NOVOLOG) ASPART 100 UNITS/ML 10ML VIAL ONE (10:27)
[2019-08-31] MEDS: THIAMINE HCL 100 MG TABLET (FP) PO SCH (11:12)
[2019-08-31] MEDS: MULTIVITAMINS (DAILY MVI) TABLET (FP) PO SCH (11:12)
[2019-08-31 15:37] VITALS: BP 99/61; PULSE 88; TEMP 98.1
[2019-09-01 10:07] LABS: MICROALBUMIN/CREATININE RATIO 192.2 mg/g creat (0.0-30.0)
== END 2019-08-31 13:18 | disposition home or self-care (01) | DRG 420 ==
LOC: JER 21:43 → JERBED 23:14 → J7W 08-29 02:18
PROVIDERS: ADMIT Internal Medicine; ATTEND Nurse Practitioner Acute Care
DX: E10.65 Type 1 diabetes mellitus with hyperglycemia (principal); E43 Unspecified severe protein-calorie malnutrition; R00.0 Tachycardia, unspecified; E87.1 Hypo-osmolality and hyponatremia; R64 Cachexia; Z68.1 Body mass index [BMI] 19.9 or less, adult; E87.6 Hypokalemia; E86.9 Volume depletion, unspecified; R10.32 Left lower quadrant pain
CPT/HCPCS: 36415; 71045-TC-FY; 76705-TC; 80053; 81003; 82010; 82043; 82272; 82550; 82570; 82803; 82962; 83036; 83690; 83735; 84100; 84134; 84439; 84443; 84484; 84703; 85025; 85610; 85730; 87086; 87186; 93005; 93010; 99284-25; J7030